=== PATIENT | female | born 1960 | race Caucasian/White ===

== ENCOUNTER 2022-03-08 12:54 | Emergency (ER) | payer OTHER, SELFPAY ==
[2022-03-08 13:02] VITALS: BP 156/65; PULSE 94; RESP 16; TEMP 36.6; O2SAT 98; BMI 25.2
== END 2022-03-08 19:28 | disposition left against medical advice (07) ==
PROVIDERS: Emergency Provider Emergency Medicine
DX: R04.0 Epistaxis (principal)
CPT/HCPCS: 99281